=== PATIENT | female | born 1940 | race Caucasian/White ===

== ENCOUNTER 2017-09-09 11:53 | Emergency (ER) | payer MEDICARE, BC ==
[~2017-09-09] VITALS: Ht 152.4 cm; Wt 59.8 kg
[~2017-09-09 11:53] MED LIST: ATORVASTATI80 MG/TAB PO; BENAZEPRIL40 M1 PO; ESOMEPRAZOLE MA40 MG PO; HYDROCHLORO25 MG/TAB PO; LEVOTHYROXIN88 MC1 PO; NIFEDIPINE30 MG PO; OXYCOD/APAP1 TA4 PO; SG ASA LOW81 M1 PO
[2017-09-09 12:42] LABS: HEMATOCRIT 42.1 % (37.0-47.0); HEMOGLOBIN 13.5 g/dl (12.0-16.0); IMMATURE GRANULOCYTES 1.3 % (0.0-1.0); MEAN CELL VOLUME 95.9 fL CALC (80.0-100.0); MEAN CORPUSCULAR HGB 30.8 pG CALC (26.0-32.0); MEAN CORPUSCULAR HGB CONC 32.1 g/L CALC (32.0-36.0); NEUT# 4.07 thou/uL (2.00-7.15); RED BLOOD COUNT 4.39 mill/uL (4.20-5.60); RED CELL DISTRI WIDTH 12.8 % (11.5-15.5)
[2017-09-09 12:53] LABS: PROTHROMBIN TIME 10.9 SECONDS (9.0-12.5)
[2017-09-09 12:55] LABS: ANION GAP 17 (6-22 (CALC)); BUN 15 mg/dL (8-23); BUN/CREATININE RATIO 18 (12-20 (CALC)); CARBON DIOXIDE 29 mmol/l (22-30); CHLORIDE 100 mmol/l (95-108); CREATININE 0.9 mg/dL (0.5-1.0); GFR > 60 ML/MIN (>=60 (CALC)); GFR FOR AFR.AMER. > 60 ML/MIN (>=60 (CALC)); POTASSIUM 4.5 mmol/l (3.5-5.1); SODIUM 142 mmol/l (137-146)
[2017-09-09 13:09] VITALS: BP 228/101
== END 2017-09-09 13:15 | disposition home or self-care (01) ==
LOC: ED 11:53
PROVIDERS: Family Medicine
DX: K52.9 Noninfective gastroenteritis and colitis, unspecified (principal); I10 Essential (primary) hypertension; Z79.82 Long term (current) use of aspirin

== ENCOUNTER 2017-10-11 10:02 | Day surgery (SDC) | payer MEDICARE, BC ==
[~2017-10-11] VITALS: Ht 152.4 cm; Wt 59.0 kg
[~2017-10-11 10:02] MED LIST changes: +CARVEDILOL6.25 MG PO; +LEVOTHYROXIN112 MC1 PO; +NEXIUM40 M1 PO
[2017-10-11 13:38] VITALS: BP 169/86
== END 2017-10-11 13:45 | disposition home or self-care (01) ==
LOC: ENDO 10:02 → ORM 17:00 → ENDO 17:00
PROVIDERS: ATTEND Internal Medicine Gastroenterology
PROC: 0D748ZZ Dilation of Esophagogastric Junction, Via Natural or Artificial Opening Endoscopic (ICD-10-PCS; principal; 2017-10-11)
PROC: 0DB48ZX Excision of Esophagogastric Junction, Via Natural or Artificial Opening Endoscopic, Diagnostic (ICD-10-PCS; 2017-10-11)
PROC: 0DBL8ZX Excision of Transverse Colon, Via Natural or Artificial Opening Endoscopic, Diagnostic (ICD-10-PCS; 2017-10-11)
PROC: 0DBN8ZX Excision of Sigmoid Colon, Via Natural or Artificial Opening Endoscopic, Diagnostic (ICD-10-PCS; 2017-10-11)
DX: K29.71 Gastritis, unspecified, with bleeding (principal); K22.2 Esophageal obstruction; Z12.11 Encounter for screening for malignant neoplasm of colon; K44.9 Diaphragmatic hernia without obstruction or gangrene; K21.0 Gastro-esophageal reflux disease with esophagitis; K63.5 Polyp of colon; D12.3 Benign neoplasm of transverse colon; K64.4 Residual hemorrhoidal skin tags; K57.30 Diverticulosis of large intestine without perforation or abscess without bleeding; K64.8 Other hemorrhoids; E78.00 Pure hypercholesterolemia, unspecified; E03.9 Hypothyroidism, unspecified; Z79.899 Other long term (current) drug therapy; Z86.010 Personal history of colon polyps; Z98.890 Other specified postprocedural states

== ENCOUNTER 2024-05-21 07:18 | Day surgery (SDC) | payer MEDICARE, BC ==
[~2024-05-21] VITALS: Ht 152.4 cm; Wt 54.4 kg
[~2024-05-21 07:18] MED LIST changes: +PROCARDIA XL30 MG PO
[2024-05-21] MEDS ORDERED: LACTATED RINGER'S 1,000 ML IV ONE (07:24)
[2024-05-21] MEDS ORDERED: METOCLOPRAMIDE HCL 10 MG/2 ML SDV ONE (07:24)
[2024-05-21] MEDS ORDERED: PREVACID30 M1 PO (08:40)
[2024-05-21 08:52] VITALS: BP 112/60
[2024-05-21] MEDS ORDERED: PROPOFOL 200 MG/20 ML VIAL IV ONE (11:43)
[2024-05-21] MEDS ORDERED: LIDOCAINE HCL 2% 2ML SDV IV ONE (11:43)
== END 2024-05-21 09:07 | disposition home or self-care (01) ==
LOC: ORM 07:18
PROVIDERS: ATTEND Surgery
PROC: 0DB38ZX Excision of Lower Esophagus, Via Natural or Artificial Opening Endoscopic, Diagnostic (ICD-10-PCS; principal; 2024-05-21)
DX: K22.11 Ulcer of esophagus with bleeding (principal); K44.9 Diaphragmatic hernia without obstruction or gangrene; K21.00 Gastro-esophageal reflux disease with esophagitis, without bleeding; I10 Essential (primary) hypertension; E03.9 Hypothyroidism, unspecified; E78.5 Hyperlipidemia, unspecified
CPT/HCPCS: J2765